=== PATIENT | female | born 2000 | race Asian ===

== ENCOUNTER 2021-08-16 23:47 | Emergency (ER) | payer OTHER ==
[~2021-08-16] VITALS: Ht 162.6 cm; Wt 68.2 kg
[2021-08-17] MEDS ORDERED: GuaiFENesin/D-METHORPHAN [SUGAR-FREE] 200-20MG/10 ML SYRUP UDCUP PO ONE (01:30)
[2021-08-17] MEDS ORDERED: ACETAMINOPHEN 500 MG TABLET PO ONE (01:30)
[2021-08-17] MEDS ORDERED: ONDANSETRON HCL 4 MG TABLET PO ONE (01:30)
[2021-08-17 01:44] LABS: COVID AG,FIA SOURCE NASOPHARYNGEAL
[2021-08-17 02:13] VITALS: BP 127/70
== END 2021-08-17 03:07 | disposition home or self-care (01) ==
LOC: EMS 23:48
DX: J06.9 Acute upper respiratory infection, unspecified (principal); Z20.822 Contact with and (suspected) exposure to COVID-19
CPT/HCPCS: 87426; 99284; Q0162; U0003